=== PATIENT | female | born 1975 | race Caucasian/White ===

== ENCOUNTER 2023-09-18 15:37 | Emergency (ER) | payer BC ==
[~2023-09-18] VITALS: Ht 160 cm; Wt 85.9 kg
[2023-09-18] MEDS ORDERED: CVSTAB PO (15:48)
[2023-09-18] MEDS ORDERED: MORPHINE 4 MG/ML 1ML VIAL IV ONE (16:50)
[2023-09-18 17:17] LABS: MEAN CORPUSCULAR HEMOGLOBIN 28.3 pg (27.0-33.0); MEAN CORPUSCULAR HGB CONC 33.3 g/dl (32.0-36.5); PLATELET COUNT, AUTOMATED 368 10^3/uL (150-450); RED BLOOD COUNT 4.59 10^6/uL (4.00-5.40); WHITE BLOOD COUNT 10.7 10^3/uL (4.0-10.0)
[2023-09-18 17:32] VITALS: TEMP 99.8
[2023-09-18 17:43] LABS: BLOOD UREA NITROGEN 9 MG/DL (9-23); CALCIUM LEVEL 9.1 MG/DL (8.5-10.1); CARBON DIOXIDE LEVEL 24 MMOL/L (20-31); CHLORIDE LEVEL 106 MMOL/L (98-107); CREATININE FOR GFR 0.45 MG/DL (0.55-1.30); GLOMERULAR FILTRATION RATE > 60.0 (>58); GLUCOSE, FASTING 99 MG/DL (60-100); POTASSIUM SERUM 3.9 MMOL/L (3.5-5.1); SODIUM LEVEL 142 MMOL/L (136-145)
[2023-09-18] MEDS ORDERED: NS 1,000 ML IV SCH (18:10)
[2023-09-18] MEDS: propofoL 200 MG/20 ML VIAL IV.PROC PRN ×3 (18:24→18:28)
[2023-09-18 18:36] VITALS: O2SAT 98
[2023-09-18] MEDS ORDERED: NORCO 5/325MG TABLET (HOME DOSE PACK) PO ONE (19:10)
[2023-09-18] MEDS ORDERED: HYDR-3713 PO (19:13)
[2023-09-18 20:11] VITALS: BP 180/97
== END 2023-09-18 20:20 | disposition home or self-care (01) ==
LOC: M ED 15:37
DX: S82.851A Displaced trimalleolar fracture of right lower leg, initial encounter for closed fracture (principal); W19.XXXA Unspecified fall, initial encounter; Y92.89 Other specified places as the place of occurrence of the external cause; F12.90 Cannabis use, unspecified, uncomplicated; Z98.890 Other specified postprocedural states; Z88.0 Allergy status to penicillin